=== PATIENT | male | born 1955 | race Caucasian/White ===

== ENCOUNTER 2017-09-21 18:09 | Inpatient (IN) ==
[2017-09-21] MEDS ORDERED: Ondansetron 4 MG/2 ML VIAL IVP ONE (21:21)
[2017-09-21] MEDS ORDERED: *HR* OxyCODONE Immed Rel 5 MG TABLET PO PRN (21:52)
[2017-09-21] MEDS ORDERED: Naloxone 0.4 MG/ML INJ IVP PRN (21:52)
[2017-09-21] MEDS ORDERED: *HR* HYDROcodone/Acet 5/325 mg TABLET PO PRN (21:52)
[2017-09-21] MEDS ORDERED: Acetaminophen 325 MG TABLET PO PRN (21:52)
[2017-09-21 22:20] LABS: Basophils % 0.1 %; Eosinophils % 0.1 %; Hematocrit 32.4 % (37.5-50.1); Hemoglobin 11.4 g/dL (12.9-16.9); Immature Granulocytes % 0.6 % (0-4); Lymphocytes # 1.3 K/mcL (0.6-4.6); Lymphocytes % 9.1 %; Mean Corpuscular HGB Conc 35.2 g/dL (31.6-35.5); Mean Corpuscular Volume 85.3 fL (83.0-100.0); Mean Platelet Volume 10.1 fL (9.4-12.4); Monocytes # 1.2 K/mcL (0.0-1.3); Neutrophils # 11.8 K/mcL (1.6-8.9); Platelet Count 203 K/mcL (140-400); Red Cell Distribution Width 14.2 % (11.5-14.5); Segmented Neutrophils % 82.1 %
[2017-09-21 22:25] LABS: INR 1.2; Prothrombin Time 12.5 Seconds (9.4-12.1)
[2017-09-21 22:39] LABS: Alanine Aminotransferase 15 Units/L (7-52); Albumin 3.2 g/dL (3.5-5.7); Albumin/Globulin Ratio 1.5 (1.1-2.2); Alkaline Phosphatase 83 Units/L (34-104); Aspartate Amino Transferase 25 Units/L (13-39); BUN/Creatinine Ratio 7 (6-26); Bilirubin,Direct 0.2 mg/dL (0.0-0.2); Bilirubin,Indirect 0.2 mg/dL (0.0-1.2); Bilirubin,Total 0.4 mg/dL (0.3-1.0); Blood Urea Nitrogen 8 mg/dL (8-23); Calcium 8.5 mg/dL (8.6-10.3); Carbon Dioxide 20 mEq/L (23-29); Chloride 111 mEq/L (98-107); Globulin 2.1 g/dL (2.4-3.5); Glucose 121 mg/dL (70-105); Magnesium 1.4 mg/dL (1.6-2.6); Osmolality,Calculated 286 (280-300); Phosphorous 1.4 mg/dL (2.7-4.5); Sodium 138 mEq/L (136-145); Total Protein 5.3 g/dL (6.4-8.9); eGFR For African Americans > 60 (> 60); eGFR For Non-African Americans > 60 (> 60)
[2017-09-21] MEDS ORDERED: 0.9 % Sodium Chloride 500 ML IVC ONE (22:40)
--- NOTE | 2017-09-21 23:14 | Internal Med History&Physical ---
Date of Encounter: 09/21/17 Time of Encounter: 22:55 Internal Medicine - H&P: HPI Chief complaint: Altered mental status Admitted From: Hospital to Hospital Transfer Plans for Post Hospital Care: Transfer Alf Facility History of present illness: Mr. Raymundo is a 62 year old male Patient was transferred from the hospital for altered mental status. She is seen and evaluated at the bedside. Patient is currently confused and cannot provide an adequate history. Most of the information is obtained from the paper chart that accompanied the patient from the [place]. Per [facility], history was obtained from the daughter and Patient' s POA. Apparently, patient lives alone and had been having worsening of his diarrehea for the past 7-10 days prior to presentation to [facility] urgent care. They reported associated weakness, patient was found confused and very weak on the floor by daughter, prompting a visit to Urgent care. He was admitted to the [facility] and managed conservatively, however, mental status was said to be worsening , hence patient was transferred here for further management There is concern for inflammatory/infectious process of the neurologic system There was a recent visit to [place] to see a friend prior to the onset of symptoms, it is not clear if there were sick contacts Work up at the [place] revealed leukocytosis with left shift, BROWN, Brain imaging was unremarkable, Chest Xray showed increased marking in the right lung suspicious for PNA. KUB was unremarkable for obstruction, During my evaluation, the patient keeps asking for something to drink and cannot hold a meaningful conversation He is awake and alert, and able to state the location and knows himself, he disoriented to time STAT labs done here shows leukocytosis with left shift, Mild anemia, multiple electrloyte abnormalities including hypokalemia, hypomagnessemia, hypophosphatemia, mild metabolic acidosism Coag panel is WNL, LFT is unremarkable, Brain MRI is pending He is able to move all extremities and power is at least 3/5 against gravity no sensor deficits, no cranial nerve defictis. I did witness what looked like a RUE and RLE tremulousness that lasted for about 5 mins, patient was awake through this process We will admit for encephalopathy, multiple electrolyte abnormalities due to enteritis, r/o c.diff Past Med Surg Social Fam HX - Past Medical History Medical history: hypertension Psychiatric history: PTSD, other - Past Surgical History Surgical History: colectomy - Social History Smoking Status: Current every day smoker Smokeless Tobacco Status: No Alcohol use: none Drug use: none Internal Medicine - H&P: Meds Atorvastatin Calcium [Lipitor] 20 mg PO HS 05/11/16 [History] Cholecalciferol (D-3) [Vitamin D] 2,000 unit PO DAILY 05/11/16 [History] Furosemide [Lasix] 20 mg PO DAILY 05/11/16 [History] Lisinopril [Zestril] 10 mg PO DAILY 05/11/16 [History] Metoclopramide [Reglan] 10 mg PO QIDAC 05/11/16 [History] Mirtazapine [Remeron] 45 mg PO HS 05/11/16 [History] Morphine Immed Rel [Morphine Sulfate] 75 mg PO Q8HR 05/11/16 [History] Pantoprazole Sodium [Protonix] 40 mg PO BID 05/11/16 [History] Sertraline [Zoloft] 200 mg PO DAILY 05/11/16 [History] Spironolactone [Aldactone] 37.5 mg PO DAILY 05/11/16 [History] 3 Allergy/AdvReac Type Severity Reaction Status Date / Time No Known Allergies Allergy Verified 05/11/16 22:48 ROS unobtainable: due to mental status All Systems PM: A 10-system review of systems was performed and is negative for pertinent findings except as documented above in the HPI. - Constitutional Vitals: Temp Pulse Resp BP Pulse Ox 99.0 F 80 16 121/71 92 09/21/17 20:13 09/21/17 20:13 09/21/17 20:13 09/21/17 20:13 09/21/17 20:13 General appearance: Present: cachectic, disheveled, A&O X 2, mild distress - Head Head exam: Present: atraumatic, normocephalic - Eye Eye exam: Present: PERRL, conjuntiva pink, sclera anicteric Pupils: Present: PERRL - Neck Neck exam general surgery: Present: supple, trachea midline. Absent: lymphadenopathy - Respiratory Respiratory exam: Present: CTAB. Absent: accessory muscle use, rales, rhonchi, wheezes - Cardiovascular Cardiovascular exam: Present: RRR, +S1, +S2. Absent: diastolic murmur, gallop, rubs, systolic murmur - GI/Abdominal GI/Abdominal exam: Present: normal bowel sounds, soft, no peritoneal signs. Absent: distended, tenderness Additional comments: scars++, soft, not tender - Extremities Exam Extremities exam: Present: warm, radial pulses palpable and symmetrical. Absent : calf tenderness, cyanotic, pedal edema - Neurological Exam Neurological exam: Present: alert, altered, CN II-XII intact, strengths equal and symetr throughout. Absent: pronater drift, facial droop, speech deficit Additional comments: RUE and RLE tremors - Skin Skin exam: Present: dry, intact Internal Med - H&P Results - Labs CBC & Chem 7: 09/21/17 22:07 09/21/17 22:07 Labs: Short CBC 09/21/17 Range/Units 22:07 WBC 14.4 H (4.3-11.1) K/mcL Hgb 11.4 L (12.9-16.9) g/dL Hct 32.4 L (37.5-50.1) % Plt Count 203 (140-400) K/mcL Neutrophils # 11.8 H (1.6-8.9) K/mcL BMP 09/21/17 22:07 Sodium 138 Potassium 3.0 L Chloride 111 H Carbon Dioxide 20 L BUN 8 Creatinine 1.14 Glucose 121 H Calcium 8.5 L Liver Function 09/21/17 Range/Units 22:07 Total Bilirubin 0.4 (0.3-1.0) mg/dL Direct Bilirubin 0.2 (0.0-0.2) mg/dL AST 25 (13-39) Units/L ALT 15 (7-52) Units/L Alkaline Phosphatase 83 (34-104) Units/L Albumin 3.2 L (3.5-5.7) g/dL - Assessment and plan (1) Encephalopathy Current Visit: Yes Status: Acute Assessment and plan: Possibly multifactorial: *Electrolyte derangements plus dehydration *R/O Intracranial process, obtain Brain MRI *Unlikely meningitis, patient's symptoms date back to 7 days ago, obtain lumbar puncture by IR routinely, no neurolgic findings suggestive of meningitis, however r/o bacterial meningitis,/lyme /viral encephalitis. No rash, but recent travel per paper chart *unlikely Gullian-Mcdermitt syndrome, patient has no motor or sensory weakness / ascending neuropathy of the lower extremities *Consult neurology *aspiration precautions (2) Chronic pain syndrome Current Visit: Yes Status: Chronic Assessment and plan: continue home meds (3) Diarrhea Current Visit: Yes Status: Acute Assessment and plan: Start IV Flagyl Send C.diff Send stool panel Qualifiers: Diarrhea type: presumed infectious Qualified Code(s): R19.7 - Diarrhea, unspecified (4) HTN (hypertension) Current Visit: Yes Status: Chronic Assessment and plan: continue home meds Qualifiers: Hypertension type: essential hypertension Qualified Code(s): I10 - Essential (primary) hypertension (5) Pneumonia Current Visit: Yes Status: Acute Assessment and plan: per CXR from the [place] Start on Levaquin IV Send resp panel Qualifiers: Pneumonia type: due to unspecified organism Laterality: right Lung location: middle lobe of lung Qualified Code(s): J18.1 - Lobar pneumonia, unspecified organism (6) HLD (hyperlipidemia) Current Visit: Yes Status: Chronic Assessment and plan: continue home meds Qualifiers: Hyperlipidemia type: unspecified Qualified Code(s): E78.5 - Hyperlipidemia , unspecified (7) PTSD (post-traumatic stress disorder) Current Visit: Yes Status: Chronic Assessment and plan: continue home meds (8) Hypokalemia Current Visit: Yes Status: Acute Assessment and plan: repalced po, rpt a.m (9) Hypomagnesemia Current Visit: Yes Status: Acute Assessment and plan: replaced IV, rpt a.m (10) Hypophosphatemia Current Visit: Yes Status: Acute Assessment and plan: replaced po, monitor a.m - Time Spent With Patient Total time spent is greater than 50% in coordination of care (as documented) at patient's floor/unit and/or counseling patient:
[2017-09-21] MEDS ORDERED: Levofloxacin 750 MG/150 ML 750 MG/150 ML BAG IVPB SCH (23:45)
[2017-09-21] MEDS: *HR* Heparin 5,000 UNIT/ML VIAL SQ SCH (23:48)
[2017-09-22 01:14] LABS: BUN/Creatinine Ratio 7 (6-26); Blood Urea Nitrogen 8 mg/dL (8-23); Calcium 8.3 mg/dL (8.6-10.3); Carbon Dioxide 18 mEq/L (23-29); Chloride 111 mEq/L (98-107); Glucose 126 mg/dL (70-105); Magnesium 1.3 mg/dL (1.6-2.6); Osmolality,Calculated 286 (280-300); Potassium 3.1 mEq/L (3.5-5.1); Sodium 138 mEq/L (136-145); eGFR For African Americans > 60 (> 60); eGFR For Non-African Americans > 60 (> 60)
[2017-09-22 01:27] LABS: Thyroid Stimulating Hormone 1.431 mcIU/mL (0.340-5.600)
[2017-09-22] MEDS: *HR* Morphine Sulfate SR (12 HR) 15 MG TABLET.ER PO SCH ×3 (02:03→19:02)
[2017-09-22] MEDS: MetroNIDAZOLE 500 MG/100 ML 500 MG/100 ML BAG IVPB SCH ×3 (02:05→16:42)
[2017-09-22] MEDS: *HR* Heparin 5,000 UNIT/ML VIAL SQ SCH ×3 (06:37→22:39)
[2017-09-22] MEDS: Spironolactone 25 MG TABLET PO SCH (09:09)
[2017-09-22] MEDS: Cholecalciferol (D-3) 1,000 UNIT TABLET PO SCH (09:10)
[2017-09-22] MEDS: Furosemide 20 MG TABLET PO SCH (09:10)
[2017-09-22] MEDS ORDERED: Ondansetron 4 MG/2 ML VIAL IVP PRN (12:41)
--- NOTE | 2017-09-22 12:51 | Neurology - Consult Note ---
Date of Encounter: 09/22/17 Time of Encounter: 12:48 Assessment and Plan (1) Altered mental status Current Visit: Yes Status: Acute At this juncture I am not able to identify any specific etiology that might have attributed to his altered mental status from a neurologic perspective. Certainly there is no evidence to support a central nervous system infectious process. It appears as this altered mental status was transient, as currently he is awake and alert and completely lucid. He is not encephalopathic. He has no nuchal signs or headache. Since he is been bedridden with diarrhea for such a long time I will recommend ruling out nutritional factors. He does have a slight bit of weakness of the left upper extremity. I would therefore like to obtain an MRI scan of the brain. However I am not impressed that a lumbar puncture is necessary at this time. I am not convinced that he had seizure episodes. Perhaps medication effect should be considered particularly morphine , Zoloft, and Reglan. I will order a CT scan of the brain and follow-up with him tomorrow. Recommend checking B12 folate and methylmalonic acid levels. We will also recommend thiamine 100 mg IV or IM. Qualifiers: Qualified Code(s): R41.82 - Altered mental status, unspecified History of Present Illness HPI: Mr. Raymundo is a 62 year old male who is being seen for neurologic consultation at the request of the hospitalist secondary to confusion. This gentleman at this time is quite lucid and is able to give a good history of his own medical account. The chart was fully reviewed. He informs me that he is essentially been bedridden for the last 3 weeks. He is been hospitalized at the [facility] in [place] secondary to weakness and worsening diarrhea. Apparently when he was admitted he was confused and very weak. Today when I entered the room he was asleep sitting up in the bed however opened his eyes to voicemail eye contact and was fully engaged. Mentioned previously, he was able to give a lucid account of his own recent medical Hospital history. He denies headache denies neck pain. Denies any new onset numbness tingling or weakness of the face arms or legs. He states he is weak because he is been bedridden for the last several weeks. I did ask about neck pain upper back pain or lower back pain all of which she denies. He denies any bladder or bowel difficulty. Upon admission to [facility] count was elevated at 14.4. I did review his electrolyte panel glucose the rest of his metabolic panel which was relatively unimpressive. Past Med Surg Social Fam HX - Past Medical History Medical history: hypertension Psychiatric history: PTSD, other - Past Surgical History Surgical History: colectomy - Social History Smoking Status: Current every day smoker Smokeless Tobacco Status: No Alcohol use: none Drug use: none Medications and Allergies Atorvastatin Calcium [Lipitor] 20 mg PO HS 05/11/16 [History] Cholecalciferol (D-3) [Vitamin D] 2,000 unit PO DAILY 05/11/16 [History] Furosemide [Lasix] 20 mg PO DAILY 05/11/16 [History] Lisinopril [Zestril] 10 mg PO DAILY 05/11/16 [History] Metoclopramide [Reglan] 10 mg PO QIDAC 05/11/16 [History] Mirtazapine [Remeron] 45 mg PO HS 05/11/16 [History] Pantoprazole Sodium [Protonix] 40 mg PO BID 05/11/16 [History] Sertraline [Zoloft] 200 mg PO DAILY 05/11/16 [History] Spironolactone [Aldactone] 37.5 mg PO DAILY 05/11/16 [History] Morphine Sulfate SR (12 HR) [MS Contin] 75 mg PO Q8HR 09/21/17 [History] 3 Allergy/AdvReac Type Severity Reaction Status Date / Time No Known Allergies Allergy Verified 05/11/16 22:48 All Systems: The remainder of the systems were reviewed and are negative Review of Systems: 10 point review of systems is consistent with the history of present illness and otherwise negative. Physical Examination - Vital Signs Vital Signs: Initial Vital Signs Temp Pulse Resp BP Pulse Ox 99.0 F 80 16 121/71 92 09/21/17 20:13 09/21/17 20:13 09/21/17 20:13 09/21/17 20:13 09/21/17 20:13 - Neurologic Detailed motor examination: other (Patient does have some mild weakness of the left upper extremity in all muscles. I would grade his strength at 4/5. He has 5 over 5 strength of the right upper extremity. And he has -5/5 strength of both lower extremities. No involuntary movements or atrophy are identified.) Detailed sensory examination: intact Reflexes: Biceps: 2+, Triceps: 2+, Brachioradialis: 2+, Patella: 2+, Achilles: 2 + Mental Status Examination: awake, alert, oriented to person, oriented to place, oriented to time, follows commands appropriately, answers questions appropriately, no agnosia, no aphasia, no aproxia Cranial nerve examination: PERRL, EOMI, visual gillespie intact, corneal reflexes brisk symmetrically, sensory to face intact, mastication intact, no facial asymmetry is present, no dysarthria, hearing is intact symmetrically, soft palate elevates bilaterally upon phonation, gag reflex intact, flexes SCM and trapezius muscles symmetrically with full power, tongue protrudes midline, no atrophy or facial fasiculations present Cerebellar examination: no dysmetria, performs finger to nose and heel to alfaro symmetrically without ataxia, no gait ataxia, no truncal ataxia, no difficulty with rapid alternating movements Results - Laboratory Findings CBC and BMP: 09/21/17 22:07 09/22/17 00:40 Abnormal lab findings: Abnormal lab results WBC 14.4 K/mcL (4.3-11.1) H 09/21/17 22:07 RBC 3.80 M/mcL (4.19-5.50) L 09/21/17 22:07 Hgb 11.4 g/dL (12.9-16.9) L 09/21/17 22:07 Hct 32.4 % (37.5-50.1) L 09/21/17 22:07 Neutrophils # 11.8 K/mcL (1.6-8.9) H 09/21/17 22:07 PT 12.5 Seconds (9.4-12.1) H 09/21/17 22:07 Potassium 3.1 mEq/L (3.5-5.1) L 09/22/17 00:40 Chloride 111 mEq/L (98-107) H 09/22/17 00:40 Carbon Dioxide 18 mEq/L (23-29) L 09/22/17 00:40 Glucose 126 mg/dL (70-105) H 09/22/17 00:40 Calcium 8.3 mg/dL (8.6-10.3) L 09/22/17 00:40 Phosphorus 1.4 mg/dL (2.7-4.5) L 09/21/17 22:07 Magnesium 1.3 mg/dL (1.6-2.6) L 09/22/17 00:40 Serum Total Protein 5.3 g/dL (6.4-8.9) L 09/21/17 22:07 Albumin 3.2 g/dL (3.5-5.7) L 09/21/17 22:07 Globulin 2.1 g/dL (2.4-3.5) L 09/21/17 22:07 Consult Discharge Plan - Plan Referrals: Carla Turner, HARRISON [Primary Care Provider] -
[2017-09-22 13:36] LABS: Adenovirus Not Detected (Not Detect); Bordetella Pertussis Not Detected (Not Detect); Chlamydophila pneumoniae Not Detected (Not Detect); Coronavirus 229E Not Detected (Not Detect); Coronavirus HKU1 Not Detected (Not Detect); Coronavirus NL63 Not Detected (Not Detect); Coronavirus OC43 Not Detected (Not Detect); Human Metapneumovirus Not Detected (Not Detect); Human Rhinovirus/Enterovirus Not Detected (Not Detect); Influenza A Subtype 2009 H1 Not Detected (Not Detect); Influenza A Untypeable Not Detected (Not Detect); Influenza B Not Detected (Not Detect); Mycoplasma pneumoniae Not Detected (Not Detect); Parainfluenza Virus 1 Not Detected (Not Detect); Parainfluenza Virus 2 Not Detected (Not Detect); Parainfluenza Virus 3 Not Detected (Not Detect); Parainfluenza Virus 4 Not Detected (Not Detect); Respiratory Syncytial Virus Not Detected (Not Detect)
[2017-09-22] MEDS: Thiamine (B-1) 100 MG in D5% in Water 50 ML IVPB SCH ×2 (16:52→20:23)
--- NOTE | 2017-09-22 17:05 | Internal Med Progress Note ---
Date of Encounter: 09/22/17 Time of Encounter: 17:00 - Assessment and plan (1) Encephalopathy Current Visit: Yes Status: Acute Assessment and plan: Potential etiology includes hypercapnia secondary to narcotics in this patient with COPD, electrolyte disturbances and volume loss from diarrhea, polypharmacy or a neurological event(less likely). #1 unable to obtain a MRI or CT as patient does not want to lay flat. He reports dyspnea on laying flat. #2 Isreal with hydration and correction of electrolytes is mentation is improved, suggestive of diarrhea being the etiology of his encephalopathy #3 hypercapnia from narcotic use cannot be completely ruled out. He was given Narcan at the [place]. Is unclear from notes whether this helped the patient or not (2) Chronic pain syndrome Current Visit: Yes Status: Chronic Assessment and plan: continue home meds (3) Diarrhea Current Visit: Yes Status: Resolved Assessment and plan: Unclear etiology. This could be infectious but has resolved. (4) HTN (hypertension) Current Visit: Yes Status: Chronic Assessment and plan: continue home meds Qualifiers: Hypertension type: essential hypertension Qualified Code(s): I10 - Essential (primary) hypertension (5) Pneumonia Current Visit: Yes Status: Suspected Assessment and plan: There is no evidence of pneumonia. We will get an x-ray. Qualifiers: Pneumonia type: due to unspecified organism Laterality: right Lung location: middle lobe of lung Qualified Code(s): J18.1 - Lobar pneumonia, unspecified organism (6) HLD (hyperlipidemia) Current Visit: Yes Status: Chronic Assessment and plan: continue home meds Qualifiers: Hyperlipidemia type: unspecified Qualified Code(s): E78.5 - Hyperlipidemia , unspecified (7) PTSD (post-traumatic stress disorder) Current Visit: Yes Status: Chronic Assessment and plan: continue home meds (8) Hypokalemia Current Visit: Yes Status: Acute Assessment and plan: Replace potassium and magnesium (9) Hypomagnesemia Current Visit: Yes Status: Acute (10) Hypophosphatemia Current Visit: Yes Status: Acute - Time Spent With Patient Total time spent is greater than 50% in coordination of care (as documented) at patient's floor/unit and/or counseling patient: 25 - 35 minutes - Subjective Interval history: He reports resolution of prior diarrhea. At present, he is alert oriented in time to express some. - Constitutional Vitals: Temp Pulse Resp BP Pulse Ox 98 F 76 16 135/82 93 09/22/17 11:04 09/22/17 11:04 09/22/17 15:35 09/22/17 11:04 09/22/17 15:35 General appearance: Present: cachectic, disheveled, mild distress, A&O X 3 Exam: Physical exam Gen: Comfortable, laying in bed, in no visible distress HEENT: Normocephalic, atraumatic. No conjunctival icterus. Moist oral mucosa. Neck: Supple Lungs: Clear to auscultation, no foreign sounds Heart: Normal S1-S2, no murmurs rubs or gallops Abdomen: Normoactive bowel sounds, no guarding rigidity or tenderness Extremities: No edema clubbing or cyanosis Neuro: Alert oriented 3 Skin: No skin lesions Internal Medicine: Result - Labs CBC & Chem 7: 09/21/17 22:07 09/22/17 00:40 Labs: Short CBC 09/21/17 Range/Units 22:07 WBC 14.4 H (4.3-11.1) K/mcL Hgb 11.4 L (12.9-16.9) g/dL Hct 32.4 L (37.5-50.1) % Plt Count 203 (140-400) K/mcL Neutrophils # 11.8 H (1.6-8.9) K/mcL BMP 09/21/17 09/22/17 22:07 00:40 Sodium 138 138 Potassium 3.0 L 3.1 L Chloride 111 H 111 H Carbon Dioxide 20 L 18 L BUN 8 8 Creatinine 1.14 1.12 Glucose 121 H 126 H Calcium 8.5 L 8.3 L Liver Function 09/21/17 Range/Units 22:07 Total Bilirubin 0.4 (0.3-1.0) mg/dL Direct Bilirubin 0.2 (0.0-0.2) mg/dL AST 25 (13-39) Units/L ALT 15 (7-52) Units/L Alkaline Phosphatase 83 (34-104) Units/L Albumin 3.2 L (3.5-5.7) g/dL - ABG Interpretation ABG results: PT/INR, D-dimer PT 12.5 Seconds (9.4-12.1) H 09/21/17 22:07 Consult Discharge Plan - Plan Referrals: Yue,Carla Felecia, [facility] [Primary Care Provider] -
[2017-09-23] MEDS ORDERED: *HR* Morphine Sulfate SR (12 HR) 15 MG TABLET.ER PO ONE (01:18)
[2017-09-23] MEDS: *HR* Morphine Sulfate SR (12 HR) 15 MG TABLET.ER PO SCH ×3 (01:25→17:54)
[2017-09-23 04:23] LABS: BUN/Creatinine Ratio 9 (6-26); Blood Urea Nitrogen 9 mg/dL (8-23); Carbon Dioxide 20 mEq/L (23-29); Chloride 105 mEq/L (98-107); Glucose 118 mg/dL (70-105); Osmolality,Calculated 276 (280-300); Potassium 3.1 mEq/L (3.5-5.1); Sodium 133 mEq/L (136-145); eGFR For African Americans > 60 (> 60); eGFR For Non-African Americans > 60 (> 60)
[2017-09-23 04:27] LABS: Basophils % 0.1 %; Hematocrit 31.4 % (37.5-50.1); Immature Granulocytes % 0.9 % (0-4); Lymphocytes # 1.3 K/mcL (0.6-4.6); Lymphocytes % 6.1 %; Mean Corpuscular Hemoglobin 29.6 pg (28.0-33.3); Mean Corpuscular Volume 84.4 fL (83.0-100.0); Mean Platelet Volume 10.1 fL (9.4-12.4); Monocytes # 1.1 K/mcL (0.0-1.3); Monocytes % 5.5 %; Neutrophils # 17.8 K/mcL (1.6-8.9); Platelet Count 185 K/mcL (140-400); Red Blood Count 3.72 M/mcL (4.19-5.50); Red Cell Distribution Width 14.2 % (11.5-14.5); Segmented Neutrophils % 87.4 %
[2017-09-23 04:49] LABS: Folate 15.9 ng/mL (3.0-16.0)
[2017-09-23] MEDS: *HR* Heparin 5,000 UNIT/ML VIAL SQ SCH ×3 (06:24→20:59)
[2017-09-23] MEDS: Spironolactone 25 MG TABLET PO SCH (09:56)
[2017-09-23] MEDS: Furosemide 20 MG TABLET PO SCH (09:57)
[2017-09-23] MEDS: Cholecalciferol (D-3) 1,000 UNIT TABLET PO SCH (10:00)
[2017-09-23] MEDS: Thiamine (B-1) 100 MG in D5% in Water 50 ML IVPB SCH (11:53)
--- NOTE | 2017-09-23 12:20 | Internal Med Progress Note ---
Date of Encounter: 09/23/17 Time of Encounter: 12:20 - Assessment and plan (1) Pneumonia Current Visit: Yes Status: Acute Assessment and plan: Chest x-ray from yesterday showed multilobar left upper and lower lobe pneumonia with infiltrates in the right upper lobe as well. This is suggestive of Community-acquired pneumonia especially with a white count. My concern is Legionella because of ongoing diarrhea. Plan #1 start Rocephin and azithromycin #2 Respiratory Cultures and Urine Antigens for Legionella and Pneumococcus #[address] Chest Based on This Data Note: Chest X-[facility] from the [facility] Was Read As a Right-Sided Opacities Not Left-Sided (2) Encephalopathy Current Visit: Yes Status: Acute Assessment and plan: Potential etiology includes hypercapnia secondary to narcotics in this patient with COPD and community-acquired pneumonia, electrolyte disturbances and volume loss from diarrhea, polypharmacy or a neurological event(less likely). He is better now and back to baseline. (3) Chronic pain syndrome Current Visit: Yes Status: Chronic Assessment and plan: continue home meds at reduced doses (4) Diarrhea Current Visit: Yes Status: Resolved Assessment and plan: Send C. difficile if persistent diarrhea Qualifiers: Diarrhea type: presumed infectious Qualified Code(s): R19.7 - Diarrhea, unspecified (5) HTN (hypertension) Current Visit: Yes Status: Chronic Assessment and plan: continue home meds Qualifiers: Hypertension type: essential hypertension Qualified Code(s): I10 - Essential (primary) hypertension (6) HLD (hyperlipidemia) Current Visit: Yes Status: Chronic Assessment and plan: continue home meds Qualifiers: Hyperlipidemia type: unspecified Qualified Code(s): E78.5 - Hyperlipidemia , unspecified (7) PTSD (post-traumatic stress disorder) Current Visit: Yes Status: Chronic Assessment and plan: continue home meds (8) Hypokalemia Current Visit: Yes Status: Acute Assessment and plan: Replace potassium and magnesium (9) Hypomagnesemia Current Visit: Yes Status: Acute (10) Hypophosphatemia Current Visit: Yes Status: Acute - Time Spent With Patient Total time spent is greater than 50% in coordination of care (as documented) at patient's floor/unit and/or counseling patient: 25 - 35 minutes - Subjective Interval history: He reports to bouts of diarrhea this morning. As you use the bathroom, he was significantly short of breath. No cough. - Constitutional Vitals: Temp Pulse Resp BP Pulse Ox 97.7 F 98 17 127/84 93 09/23/17 11:33 09/23/17 11:33 09/23/17 11:33 09/23/17 11:33 09/23/17 11:33 General appearance: Present: cachectic, disheveled, mild distress, A&O X 3 Exam: Physical exam Gen: Comfortable, laying in bed, in no visible distress HEENT: Normocephalic, atraumatic. No conjunctival icterus. Moist oral mucosa. Neck: Supple Lungs: Clear to auscultation, left-sided crackles Heart: Normal S1-S2, no murmurs rubs or gallops Abdomen: Normoactive bowel sounds, no guarding rigidity or tenderness Extremities: No edema clubbing or cyanosis Neuro: Alert oriented 3, no focal deficits Skin: No skin lesions Internal Medicine: Result - Labs CBC & Chem 7: 09/23/17 03:53 09/23/17 03:53 Labs: Short CBC 09/23/17 Range/Units 03:53 WBC 20.4 H (4.3-11.1) K/mcL Hgb 11.0 L (12.9-16.9) g/dL Hct 31.4 L (37.5-50.1) % Plt Count 185 (140-400) K/mcL Neutrophils # 17.8 H (1.6-8.9) K/mcL BMP 09/23/17 03:53 Sodium 133 L Potassium 3.1 L Chloride 105 Carbon Dioxide 20 L BUN 9 Creatinine 0.99 Glucose 118 H Calcium 8.0 L - ABG Interpretation ABG results: PT/INR, D-dimer PT 12.5 Seconds (9.4-12.1) H 09/21/17 22:07 - Impressions Impressions Chest X-Ray 09/22/17 17:08 IMPRESSION: Extensive interstitial pulmonary opacities, left greater than right. Findings may represent pneumonia. This is new since 01/23/2014. Recommend radiographic follow-up to complete resolution. D/ / Ajay Bazan MD / Ajay Bazan MD Interpreting Provider: Ajay Bazan MD Consult Discharge Plan - Plan Referrals: Carla Turner CNP [Primary Care Provider] -
[2017-09-23] MEDS ORDERED: Potassium Chloride 40 MEQ, Lidocaine 1% 2 ML in D5% in Water 500 ML IVPB ONE (12:45)
[2017-09-23] MEDS: cefTRIAXone 1,000 MG in 0.9 % Sodium Chloride Mini Bag 100 ML IVPB SCH (15:01)
[2017-09-23] MEDS: Azithromycin 500 MG in D5% in Water 250 ML IVPB SCH (15:02)
[2017-09-24] MEDS: *HR* Morphine Sulfate SR (12 HR) 15 MG TABLET.ER PO SCH ×3 (00:51→15:57)
[2017-09-24] MEDS: *HR* Heparin 5,000 UNIT/ML VIAL SQ SCH ×3 (05:59→21:43)
[2017-09-24] MEDS: Spironolactone 25 MG TABLET PO SCH (07:43)
[2017-09-24] MEDS: Cholecalciferol (D-3) 1,000 UNIT TABLET PO SCH (07:44)
[2017-09-24] MEDS: Furosemide 20 MG TABLET PO SCH (07:44)
[2017-09-24] MEDS: Thiamine (B-1) 100 MG in D5% in Water 50 ML IVPB SCH (09:26)
[2017-09-24] MEDS: cefTRIAXone 1,000 MG in 0.9 % Sodium Chloride Mini Bag 100 ML IVPB SCH (11:02)
[2017-09-24] MEDS: Azithromycin 500 MG in D5% in Water 250 ML IVPB SCH (11:08)
[2017-09-24] MEDS: Ipratropium/Albuterol Neb 3 ML IH SCH ×2 (15:38→21:05)
[2017-09-24] MEDS ORDERED: Potassium Chloride 20 MEQ, Lidocaine 1% 2 ML in D5% in Water 250 ML IVPB ONE (15:46)
--- NOTE | 2017-09-24 21:34 | Internal Med Progress Note ---
Date of Encounter: 09/24/17 Time of Encounter: 09:37 - Assessment and plan (1) Pneumonia Current Visit: Yes Status: Acute Assessment and plan: Improving. CXR with multilobar left upper and lower lobe pneumonia with infiltrates in the right upper lobe as well. This is suggestive of community- acquired pneumonia especially with a white count. Continue IV Rocephin and azithromycin. Still with O2 requirement; will qualify for home supplemental O2. (2) Encephalopathy Current Visit: Yes Status: Acute Assessment and plan: Likely combination of metabolic encephalopathy and drug effect (opioids). Potential etiology includes hypercapnia secondary to narcotics in this patient with COPD and community-acquired pneumonia, electrolyte disturbances and volume loss from diarrhea, polypharmacy or a neurological event(less likely). Continues to improve. Sales Office Manager in room today, and she states that he has improved greatly but still with some difficulty with recall. I will suspect this will continue to improve with resolution of acute illness and metabolic derangements. Drug effects likely resolved now with reduction in opioid dosage. Will consult industrial health and safety professor to rule out nutritional deficiencies as a cause. (3) Chronic pain syndrome Current Visit: Yes Status: Chronic Assessment and plan: Continue home medications at reduced dosage. (4) Diarrhea Current Visit: Yes Status: Resolved Assessment and plan: Resolved. (5) HTN (hypertension) Current Visit: Yes Status: Chronic Assessment and plan: Continue home medications. Qualifiers: Hypertension type: essential hypertension Qualified Code(s): I10 - Essential (primary) hypertension (6) HLD (hyperlipidemia) Current Visit: Yes Status: Chronic Assessment and plan: Continue home medications. Qualifiers: Hyperlipidemia type: unspecified Qualified Code(s): E78.5 - Hyperlipidemia , unspecified (7) PTSD (post-traumatic stress disorder) Current Visit: Yes Status: Chronic Assessment and plan: Continue home medications. (8) Hypokalemia Current Visit: Yes Status: Acute Assessment and plan: Continue potassium repletion. Recheck BMP in AM. (9) Hypomagnesemia Current Visit: Yes Status: Resolved Assessment and plan: Resolved. - Time Spent With Patient Total time spent is greater than 50% in coordination of care (as documented) at patient's floor/unit and/or counseling patient: - Subjective Interval history: Patient had no acute events overnight. He thinks that he is back to his baseline. He is requiring supplemental O2 (previously no requirement at home), but denies chest pain or SOB. He has no new complaints. - Constitutional Vitals: Temp Pulse Resp BP Pulse Ox 98.5 F 90 18 106/70 90 09/24/17 20:58 09/24/17 20:58 09/24/17 20:58 09/24/17 20:58 09/24/17 20:58 General appearance: Present: cooperative, A&O X 3, pleasant, no acute distress, loss of weight, answers questions appropriately - Respiratory Respiratory exam: Present: CTAB. Absent: accessory muscle use, rales, rhonchi, wheezes Additional comments: Mildly labored WOB - Cardiovascular Cardiovascular exam: Present: RRR, +S1, +S2. Absent: diastolic murmur, gallop, rubs, systolic murmur Additional comments: No BLE edema - GI/Abdominal GI/Abdominal exam: Present: normal bowel sounds, soft. Absent: distended, hepatomegaly, mass, splenomegaly, tenderness - Psychiatric Psychiatric exam: Present: normal affect, normal mood. Absent: agitated, anxious, depressed - Skin Skin exam: Present: dry, intact, warm. Absent: cyanosis, rash Internal Medicine: Result - Labs CBC & Chem 7: 09/23/17 03:53 09/23/17 03:53 - ABG Interpretation ABG results: PT/INR, D-dimer PT 12.5 Seconds (9.4-12.1) H 09/21/17 22:07 Consult Discharge Plan - Plan Referrals: Carla Turner, [facility] [Primary Care Provider] -
[2017-09-25] MEDS: *HR* Morphine Sulfate SR (12 HR) 15 MG TABLET.ER PO SCH ×4 (01:04→23:53)
[2017-09-25] MEDS: Ipratropium/Albuterol Neb 3 ML IH SCH ×4 (03:48→21:56)
[2017-09-25 04:59] LABS: Basophils % 0.1 %; Eosinophils # 0.1 K/mcL (0.0-0.6); Eosinophils % 0.4 %; Hematocrit 30.9 % (37.5-50.1); Hemoglobin 10.9 g/dL (12.9-16.9); Immature Granulocytes % 0.7 % (0-4); Immature Platelets 2.9 % (1.1-6.1); Lymphocytes # 1.1 K/mcL (0.6-4.6); Lymphocytes % 7.3 %; Mean Corpuscular HGB Conc 35.3 g/dL (31.6-35.5); Mean Corpuscular Hemoglobin 29.9 pg (28.0-33.3); Mean Corpuscular Volume 84.9 fL (83.0-100.0); Mean Platelet Volume 9.7 fL (9.4-12.4); Monocytes # 0.8 K/mcL (0.0-1.3); Monocytes % 5.2 %; Neutrophils # 12.7 K/mcL (1.6-8.9); Platelet Count 192 K/mcL (140-400); Red Blood Count 3.64 M/mcL (4.19-5.50); Segmented Neutrophils % 86.3 %
[2017-09-25 05:28] LABS: BUN/Creatinine Ratio 9 (6-26); Blood Urea Nitrogen 8 mg/dL (8-23); Calcium 7.8 mg/dL (8.6-10.3); Carbon Dioxide 22 mEq/L (23-29); Chloride 99 mEq/L (98-107); Glucose 112 mg/dL (70-105); Osmolality,Calculated 267 (280-300); Potassium 3.4 mEq/L (3.5-5.1); Sodium 129 mEq/L (136-145); eGFR For African Americans > 60 (> 60); eGFR For Non-African Americans > 60 (> 60)
[2017-09-25] MEDS: *HR* Heparin 5,000 UNIT/ML VIAL SQ SCH ×3 (05:39→20:18)
[2017-09-25] MEDS: Furosemide 20 MG TABLET PO SCH (08:22)
[2017-09-25] MEDS: Thiamine (B-1) 100 MG TABLET PO SCH (08:22)
[2017-09-25] MEDS: Cholecalciferol (D-3) 1,000 UNIT TABLET PO SCH (08:22)
[2017-09-25] MEDS: Spironolactone 25 MG TABLET PO SCH (08:22)
[2017-09-25 08:54] LABS: Magnesium 1.5 mg/dL (1.6-2.6); Phosphorous 1.8 mg/dL (2.7-4.5)
[2017-09-25] MEDS ORDERED: *HR* Magnesium Sulfate 1 GM/2 ML VIAL IM STA (09:32)
[2017-09-25] MEDS: Azithromycin 500 MG in D5% in Water 250 ML IVPB SCH (12:53)
[2017-09-25] MEDS: cefTRIAXone 1,000 MG in 0.9 % Sodium Chloride Mini Bag 100 ML IVPB SCH (12:54)
[2017-09-25] MEDS: MetroNIDAZOLE 500 MG/100 ML 500 MG/100 ML BAG IVPB SCH ×2 (16:06→23:53)
[2017-09-25] MEDS: Nicotine 21 MG PATCH.TD24 TD SCH (17:34)
--- NOTE | 2017-09-25 21:31 | Internal Med Progress Note ---
Date of Encounter: 09/25/17 Time of Encounter: 15:47 - Assessment and plan (1) Pneumonia Current Visit: Yes Status: Acute Assessment and plan: Improving, but still with significant supplemental O2 requirement. CXR with multilobar left upper and lower lobe pneumonia with infiltrates in the right upper lobe as well. This is suggestive of community-acquired pneumonia especially with a white count. Continue IV Rocephin and azithromycin. Will qualify for home supplemental O2. Per PT/OT recommendations, plan for discharge to SNF when medically stable. (2) Encephalopathy Current Visit: Yes Status: Resolved Assessment and plan: Likely combination of metabolic encephalopathy and drug effect (opioids). Potential etiology includes hypercapnia secondary to narcotics in this patient with COPD and community-acquired pneumonia, electrolyte disturbances and volume loss from diarrhea, polypharmacy or a neurological event(less likely). Looks to be resolved and now back to baseline. Will continue to taper opioids to lowest effective dose. Nutrition consulted; appreciate input. (3) Chronic pain syndrome Current Visit: Yes Status: Chronic Assessment and plan: Continue home medications at reduced dosage. Continue to wean opioids to lowest effective dose. (4) Diarrhea Current Visit: Yes Status: Acute Assessment and plan: Resolved, but restarted again today. C. diff negative. Obtained CT abdomen/ pelvis, which showed enteritis. Will add flagyl to antibiotic regimen. Start imodium PRN for diarrhea. CT abdomen/pelvis also showed 2.8 cm right common iliac artery aneurysm. Will recommended yearly follow up with B mode ultrasound scanning. (5) HTN (hypertension) Current Visit: Yes Status: Chronic Assessment and plan: Continue home medications. Qualifiers: Hypertension type: essential hypertension Qualified Code(s): I10 - Essential (primary) hypertension (6) HLD (hyperlipidemia) Current Visit: Yes Status: Chronic Assessment and plan: Continue home medications. Qualifiers: Hyperlipidemia type: unspecified Qualified Code(s): E78.5 - Hyperlipidemia , unspecified (7) PTSD (post-traumatic stress disorder) Current Visit: Yes Status: Chronic Assessment and plan: Continue home medications. (8) Hypokalemia Current Visit: Yes Status: Acute Assessment and plan: Continue potassium repletion. Recheck BMP in AM. (9) Hypomagnesemia Current Visit: Yes Status: Acute Assessment and plan: Replete magnesium. Recheck BMP in AM. (10) Nicotine dependence Current Visit: Yes Status: Acute Assessment and plan: Smokes 3 PPD. Counselled on smoking cessation. Start nicotine transdermal 21 mg QD. Qualifiers: Nicotine product type: cigarettes Substance use status: in withdrawal Qualified Code(s): F17.213 - Nicotine dependence, cigarettes, with withdrawal (11) DVT prophylaxis Current Visit: Yes Status: Acute Assessment and plan: Continue heparin SQ. - Time Spent With Patient Total time spent is greater than 50% in coordination of care (as documented) at patient's floor/unit and/or counseling patient: less than 15 minutes - Subjective Interval history: Patient had no acute events overnight. He states that he is "ready to go home. " Nursing staff reports increased diarrhea this AM. C. diff is negative. He denies abdominal pain, nausea, or vomiting. He is still requiring supplemental O2, and more so during exertion and therapy. He denies chest pain or SOB. He has no new complaints. - Constitutional Vitals: Temp Pulse Resp BP Pulse Ox 98.0 F 80 18 119/75 93 09/25/17 20:10 09/25/17 20:10 09/25/17 20:10 09/25/17 20:10 09/25/17 20:10 General appearance: Present: cooperative, A&O X 3, pleasant, no acute distress, loss of weight, answers questions appropriately - Respiratory Respiratory exam: Present: CTAB. Absent: accessory muscle use, rales, rhonchi, wheezes Additional comments: Mildly labored WOB - Cardiovascular Cardiovascular exam: Present: RRR, +S1, +S2. Absent: diastolic murmur, gallop, rubs, systolic murmur Additional comments: No BLE edema - GI/Abdominal GI/Abdominal exam: Present: normal bowel sounds, soft. Absent: distended, hepatomegaly, mass, splenomegaly, tenderness - Psychiatric Psychiatric exam: Present: normal affect, normal mood. Absent: agitated, anxious, depressed - Skin Skin exam: Present: dry, intact, warm. Absent: cyanosis, rash Internal Medicine: Result - Labs CBC & Chem 7: 09/25/17 04:37 09/25/17 04:37 Labs: Short CBC 09/25/17 Range/Units 04:37 WBC 14.7 H (4.3-11.1) K/mcL Hgb 10.9 L (12.9-16.9) g/dL Hct 30.9 L (37.5-50.1) % Plt Count 192 (140-400) K/mcL Neutrophils # 12.7 H (1.6-8.9) K/mcL BMP 09/25/17 04:37 Sodium 129 L Potassium 3.4 L Chloride 99 Carbon Dioxide 22 L BUN 8 Creatinine 0.87 Glucose 112 H Calcium 7.8 L - ABG Interpretation ABG results: PT/INR, D-dimer PT 12.5 Seconds (9.4-12.1) H 09/21/17 22:07 - Impressions Impressions Abdomen/Pelvis CT 09/25/17 12:30 IMPRESSION: 1. Bilateral small pleural effusions. Ground-glass infiltrates at the lung bases may reflect pneumonia. Please correlate clinically. 2. Bilateral nonobstructing renal calculi. 3. 2.8 cm right common iliac artery aneurysm. 4. Fluid-filled mildly dilated multiple small bowel loops suggestive of enteritis. No clear evidence for bowel obstruction. Small amount of free fluid in the pelvis likely reactive to the enteritis. D/ / Shon Patel MD / Shon Patel MD Interpreting Provider: Shon Patel MD Consult Discharge Plan - Plan Referrals: Carla Turner CNP [Primary Care Provider] -
[2017-09-26] MEDS: Ipratropium/Albuterol Neb 3 ML IH SCH ×2 (04:39→11:22)
[2017-09-26] MEDS: *HR* Heparin 5,000 UNIT/ML VIAL SQ SCH ×2 (05:59→14:19)
[2017-09-26 06:32] LABS: Basophils % 0.1 %; Eosinophils # 0.2 K/mcL (0.0-0.6); Hematocrit 29.4 % (37.5-50.1); Hemoglobin 10.3 g/dL (12.9-16.9); Immature Granulocytes % 0.4 % (0-4); Lymphocytes # 0.9 K/mcL (0.6-4.6); Lymphocytes % 8.1 %; Mean Corpuscular Hemoglobin 29.7 pg (28.0-33.3); Mean Corpuscular Volume 84.7 fL (83.0-100.0); Mean Platelet Volume 9.5 fL (9.4-12.4); Monocytes # 0.6 K/mcL (0.0-1.3); Monocytes % 5.5 %; Platelet Count 179 K/mcL (140-400); Red Blood Count 3.47 M/mcL (4.19-5.50); Red Cell Distribution Width 14.3 % (11.5-14.5); Segmented Neutrophils % 83.9 %
[2017-09-26 06:42] LABS: Magnesium 1.7 mg/dL (1.6-2.6); Phosphorous 2.3 mg/dL (2.7-4.5)
[2017-09-26 06:45] LABS: BUN/Creatinine Ratio 11 (6-26); Blood Urea Nitrogen 8 mg/dL (8-23); Calcium 7.9 mg/dL (8.6-10.3); Carbon Dioxide 25 mEq/L (23-29); Chloride 99 mEq/L (98-107); Glucose 113 mg/dL (70-105); Osmolality,Calculated 269 (280-300); Potassium 3.7 mEq/L (3.5-5.1); Sodium 130 mEq/L (136-145); eGFR For African Americans > 60 (> 60); eGFR For Non-African Americans > 60 (> 60)
[2017-09-26] MEDS: *HR* Morphine Sulfate SR (12 HR) 15 MG TABLET.ER PO SCH (07:26)
[2017-09-26] MEDS: MetroNIDAZOLE 500 MG/100 ML 500 MG/100 ML BAG IVPB SCH (07:26)
[2017-09-26] MEDS ORDERED: Azithromycin 250 MG TABLET PO SCH (09:00)
[2017-09-26] MEDS: Furosemide 20 MG TABLET PO SCH (09:29)
[2017-09-26] MEDS: Spironolactone 25 MG TABLET PO SCH (09:29)
[2017-09-26] MEDS: Nicotine 21 MG PATCH.TD24 TD SCH (09:30)
[2017-09-26] MEDS: Thiamine (B-1) 100 MG TABLET PO SCH (09:30)
[2017-09-26] MEDS: Cholecalciferol (D-3) 1,000 UNIT TABLET PO SCH (09:30)
[2017-09-26] MEDS ORDERED: Acetylcysteine 10% 2 ML INHSOL IH SCH (11:00)
[2017-09-26 11:05] VITALS: BP 122/79
[2017-09-26] MEDS: cefTRIAXone 1,000 MG in 0.9 % Sodium Chloride Mini Bag 100 ML IVPB SCH (11:29)
--- NOTE | 2017-09-26 14:00 | Discharge Summary ---
- NOTES TO OUTPATIENT PROVIDER Notes to Outpatient Provider: Disposition with outpatient provider at the time of [facility] discharge. Orders not resulted at time of discharge: Pending orders 09/21/17 23:19 Culture,Blood [BC] Stat 09/23/17 13:00 Culture,Respiratory [RM] Stat 09/29/17 04:00 Phosphorous AM 0400 Date of Encounter: 09/26/17 Time of Encounter: 13:57 - Discharge Diagnosis (1) Pneumonia Priority: Primary Status: Acute (2) Encephalopathy Priority: Secondary Status: Resolved (3) Chronic pain syndrome Priority: Secondary Status: Chronic (4) Diarrhea Priority: Secondary Status: Acute (5) HTN (hypertension) Priority: Secondary Status: Chronic Qualifiers: Hypertension type: essential hypertension Qualified Code(s): I10 - Essential (primary) hypertension (6) HLD (hyperlipidemia) Priority: Secondary Status: Chronic Qualifiers: Hyperlipidemia type: unspecified Qualified Code(s): E78.5 - Hyperlipidemia , unspecified (7) PTSD (post-traumatic stress disorder) Priority: Secondary Status: Chronic (8) Hypokalemia Priority: Secondary Status: Resolved (9) Hypomagnesemia Priority: Secondary Status: Resolved (10) Nicotine dependence Priority: Secondary Status: Chronic Qualifiers: Nicotine product type: cigarettes Substance use status: in withdrawal Qualified Code(s): F17.213 - Nicotine dependence, cigarettes, with withdrawal (11) DVT prophylaxis Priority: Secondary Status: Acute Hospital course: Mr. Raymundo is a 62 year old white male admitted for acute encephalopathy and pneumonia. Patient was admitted to general medical floor with telemetry. He received dose of IV levaquin at OSH. He was transitioned to IV rocephin and azithromycin for CAP. He was started on supplemental O2 and nebulizer treatments for acute respiratory failure. He has required 4-6 L NC during this admission, more with exertion and therapy. His encephalopathy was thought to likely be a combination of metabolic encephalopathy and drug effect (opioids). Potential etiology included hypercapnia secondary to narcotics in this patient with COPD and community-acquired pneumonia, electrolyte disturbances and volume loss from diarrhea, and/or polypharmacy. Home long-acting morphine dose was halved and home oxycodone discontinued, and his mental status improved. Mental status continued to improve throughout hospitalization, and lye machine operator states that he is now back to baseline mental status. Hearing Screen Coordinator was consulted, and clear liquid diet was recommended as patient did not have dentures. Nutritional supplements were started. He had some hyponatremia which has started to improve with fluid restriction to 2L QD. He had some acute on subacute diarrhea, without abdominal pain, nausea, or vomiting. CT abdomen showed enteritis. IV flagyl was added to his antibiotic regimen. Diarrhea improved the next day with imodium. CT abdomen also showed an iliac aneurysm that will need to be followed up in 1 year based on size. Patient has met maximum benefit of this hospitalization and will be discharged to [facility] for acute rehabilitation. Discharge discussed with: patient, family, nurse, social work, case management, other (Pharmacist) - Time Spent with Patient Total time spent providing and/or coordinating discharge services: Greater than 30 minutes - Discharge Medications Prescriptions: RX: Azithromycin [Zithromax Tri-Reece] 500 mg PO DAILY 1 Days #1 tablet Cefdinir [Omnicef] 300 mg PO BID 4 Days #7 capsule metroNIDAZOLE [Flagyl] 500 mg PO TID 6 Days #17 tablet Home Medications: RX: Atorvastatin Calcium [Lipitor] 20 mg PO HS 05/11/16 [History] RX: Furosemide [Lasix] 20 mg PO DAILY 05/11/16 [History] RX: Lisinopril [Zestril] 10 mg PO DAILY 05/11/16 [History] RX: Metoclopramide [Reglan] 10 mg PO QID PRN 05/11/16 [History] RX: Mirtazapine [Remeron] 45 mg PO HS 05/11/16 [History] RX: Pantoprazole Sodium [Protonix] 40 mg PO BID 05/11/16 [History] RX: Sertraline [Zoloft] 200 mg PO DAILY 05/11/16 [History] RX: Spironolactone [Aldactone] 37.5 mg PO DAILY 05/11/16 [History] RX: Albuterol Sulfate [Proair Hfa] 2 puff IH Q6H PRN 09/23/17 [History] RX: Aripiprazole [Abilify] 7.5 mg PO DAILY 09/23/17 [History] RX: Budesonide/Formoterol 160/4.5 [Symbicort 160/4.5] 2 puff IH BID 09/23/17 [ History] RX: Melatonin/Pyridoxine HCl (B6) [Melatonin 3 mg Tablet] 9 mg PO HS PRN [History] RX: Multivitamin [Flintstones] 1 tab PO DAILY 09/23/17 [History] RX: Pregabalin [Lyrica] 150 mg PO BID 09/23/17 [History] RX: SUMAtriptan Succinate [Imitrex] 100 mg PO DAILY PRN 09/23/17 [History] RX: Tamsulosin [Flomax] 0.8 mg PO DAILY 09/23/17 [History] Cefdinir [Omnicef] 300 mg PO BID 4 Days #7 capsule 09/26/17 [Rx] RX: Azithromycin [Zithromax Tri-Reece] 500 mg PO DAILY 1 Days #1 tablet 09/26/17 [ Rx] RX: Cholecalciferol (D-3) [Vitamin D] 1,000 unit PO DAILY tablet 09/26/17 [Rx] RX: HYDROcodone/Acet 5/325 mg [[place] 5-325 mg] 1 tab PO Q6HR PRN 5 Days #20 tablet 09/26/17 [Rx] RX: Loperamide [Imodium] 2 mg PO Q4HR PRN capsule 09/26/17 [Rx] RX: Morphine Sulfate SR (12 HR) [MS Contin] 30 mg PO Q8HR 5 Days #30 09/26/17 [ Rx] RX: Nicotine Patch [Nicoderm] 21 mg TD DAILY patch.td24 09/26/17 [Rx] metroNIDAZOLE [Flagyl] 500 mg PO TID 6 Days #17 tablet 09/26/17 [Rx] Allergies/Adverse Reactions: 3 Allergy/AdvReac Type Severity Reaction Status Date / Time No Known Allergies Allergy Verified 05/11/16 22:48 Date of admission: 09/21/17 21:52 Primary care physician: Carla Grove Consults: 09/21/17 22:51 Consult to Neurology [CONS] Routine Consulting Provider: Neu[facility] Reason for Consult: Encephalopathy, Tremos, Weakness Call Completed: No 09/24/17 08:18 consult to filter tender [Consult to Nutrition] [CONS] Routine Comment: Please identify nutritional deficiencies and treat Consulting Provider: NUTRITION Reason for Dietary Consult: Diet Education Other:: Please identify nutritional deficiencies and treat. Thanks. 09/24/17 16:32 Consult to Occupational Therapy [CONS] Routine Comment: Evaluate, develop and implement POC Reason for Consult: Generalized weakness/debility secondary to acute/subacute encephalopathy (likely secondary to overuse of opioids , now tapered down and with normal mentation), poor nutrition (filter tender following), and acute infection ( pneumonia, now improving). Please evaluate, treat, and make recommendations. Please try to see him first thing tomorrow as he will be discharged home tomorrow. Thanks! Does patient have active BEDREST order?: No Is patient medically & hemodynamically stable?: Yes Patient assessed for mobility or mobilized this visit?: No Consult to Physical Therapy [CONS] Routine Comment: Evaluate, develop and implement POC Reason for Consult: Generalized weakness/debility secondary to acute/subacute encephalopathy (likely secondary to overuse of opioids , now tapered down and with normal mentation), poor nutrition (filter tender following), and acute infection ( pneumonia, now improving). Please evaluate, treat, and make recommendations. Please try to see him first thing tomorrow as he will be discharged home tomorrow. Thanks! Does patient have active BEDREST order?: No Is patient medically & hemodynamically stable?: Yes Patient assessed for mobility or mobilized this visit?: No 09/25/17 11:31 Consult to Filter Tank Tender Helper [CONS] Stat Reason for SW Consult: SNF Placement today. Medically clear for discharge today. 09/25/17 11:32 Consult to Case Management [CONS] Stat Comment: SNF Placement today. Medically clear for discharg Discharging clinician: Jt Cerrato Anticipated date of discharge: 09/26/17 - Constitutional Vitals: Temp Pulse Resp BP Pulse Ox 98 F 73 16 122/79 93 09/26/17 11:04 09/26/17 11:04 09/26/17 11:04 09/26/17 11:04 09/26/17 11:04 General appearance: Present: cooperative, A&O X 3, pleasant, no acute distress, loss of weight, answers questions appropriately - Respiratory Respiratory exam: Present: CTAB. Absent: accessory muscle use, rales, rhonchi, wheezes Additional comments: Normal WOB - Cardiovascular Cardiovascular exam: Present: RRR, +S1, +S2. Absent: diastolic murmur, gallop, rubs, systolic murmur Additional comments: No BLE edema - GI/Abdominal GI/Abdominal exam: Present: normal bowel sounds, soft. Absent: distended, hepatomegaly, mass, splenomegaly, tenderness - Psychiatric Psychiatric exam: Present: normal affect, normal mood. Absent: agitated, anxious, depressed - Skin Skin exam: Present: dry, intact, warm. Absent: cyanosis, rash - Patient Status Disposition: Transfer [facility] Condition: Good Overall status at discharge: patient is progressing back to baseline - Discharge Instructions Follow Up With: Carla Turner CNP [Primary Care Provider] - - Diet and Activity Activity: as per physical therapy Diet: other (Clear Liquid Diet, Fluid Restriction 2L QD) - VTE Documentation of Mechanical Device: Intermittent pneumatic compression device
--- NOTE | 2017-09-26 14:45 | Physician Discharge Referral ---
ExtendedCare Referral Info Transfer To: [facility] Inpatient Provider in Charge after Transfer: Other Institutional Level of Care: Skilled - Diagnosis (1) Pneumonia Priority: Primary Status: Acute (2) Encephalopathy Priority: Secondary Status: Resolved (3) Chronic pain syndrome Priority: Secondary Status: Chronic (4) Diarrhea Priority: Secondary Status: Acute (5) HTN (hypertension) Priority: Secondary Status: Chronic (6) HLD (hyperlipidemia) Priority: Secondary Status: Chronic (7) PTSD (post-traumatic stress disorder) Priority: Secondary Status: Chronic (8) Hypokalemia Priority: Secondary Status: Resolved (9) Hypomagnesemia Priority: Secondary Status: Resolved (10) Nicotine dependence Priority: Secondary Status: Chronic (11) DVT prophylaxis Priority: Secondary Status: Acute Prognosis: Fair Aware of Diagnosis: Patient, Family Aware of Prognosis: Patient, Family - Transfer Medications Prescriptions: Azithromycin [Zithromax Tri-Reece] 500 mg PO DAILY 1 Days #1 tablet Cefdinir [Omnicef] 300 mg PO BID 4 Days #7 capsule metroNIDAZOLE [Flagyl] 500 mg PO TID 6 Days #17 tablet Home Medications: Atorvastatin Calcium [Lipitor] 20 mg PO HS 05/11/16 [History] Furosemide [Lasix] 20 mg PO DAILY 05/11/16 [History] Lisinopril [Zestril] 10 mg PO DAILY 05/11/16 [History] Metoclopramide [Reglan] 10 mg PO QID PRN 05/11/16 [History] Mirtazapine [Remeron] 45 mg PO HS 05/11/16 [History] Pantoprazole Sodium [Protonix] 40 mg PO BID 05/11/16 [History] Sertraline [Zoloft] 200 mg PO DAILY 05/11/16 [History] Spironolactone [Aldactone] 37.5 mg PO DAILY 05/11/16 [History] Albuterol Sulfate [Proair Hfa] 2 puff IH Q6H PRN 09/23/17 [History] Aripiprazole [Abilify] 7.5 mg PO DAILY 09/23/17 [History] Budesonide/Formoterol 160/4.5 [Symbicort 160/4.5] 2 puff IH BID 09/23/17 [ History] Melatonin/Pyridoxine HCl (B6) [Melatonin 3 mg Tablet] 9 mg PO HS PRN 09/23/17 [ History] Multivitamin [Flintstones] 1 tab PO DAILY 09/23/17 [History] Pregabalin [Lyrica] 150 mg PO BID 09/23/17 [History] SUMAtriptan Succinate [Imitrex] 100 mg PO DAILY PRN 09/23/17 [History] Tamsulosin [Flomax] 0.8 mg PO DAILY 09/23/17 [History] Azithromycin [Zithromax Tri-Reece] 500 mg PO DAILY 1 Days #1 tablet 09/26/17 [Rx] Cefdinir [Omnicef] 300 mg PO BID 4 Days #7 capsule 09/26/17 [Rx] Cholecalciferol (D-3) [Vitamin D] 1,000 unit PO DAILY tablet 09/26/17 [Rx] HYDROcodone/Acet 5/325 mg [[place] 5-325 mg] 1 tab PO Q6HR PRN 5 Days #20 tablet 09/26/17 [Rx] Loperamide [Imodium] 2 mg PO Q4HR PRN capsule 09/26/17 [Rx] Morphine Sulfate SR (12 HR) [MS Contin] 30 mg PO Q8HR 5 Days #30 09/26/17 [Rx] Nicotine Patch [Nicoderm] 21 mg TD DAILY patch.td24 09/26/17 [Rx] metroNIDAZOLE [Flagyl] 500 mg PO TID 6 Days #17 tablet 09/26/17 [Rx] Allergies/Adverse Reactions: 3 Allergy/AdvReac Type Severity Reaction Status Date / Time No Known Allergies Allergy Verified 05/11/16 22:48 - Respiratory Orders Oxygen / L per min (4L NC; wean as tolerated to RA.) Smoking Cessation: Smoking cessation has been advised. For more information, call the [place] Tobacco Quit Line at 9-450-HPGL-NOW. - Mobility Orders Chair, Other (Per physical therapy.) - Rehabiliation Orders Rehab Potential: Fair Rehab Orders: Evaluation for Physical Therapy, Evaluation for Occupational Therapy - Diet Orders Cardiac (Clear Liquid Diet; 2 L QD Fluid Restriction) CERTIFICATION: I certify that the transfer of the above named patient to an Extended Care Facility is necessary for the continuing treatment of the diagnosis listed. The above information is true and accurate reflection of patient's current condition. Confidential - Redisclosure prohibited without a patient's written consent.
[2017-09-26] MEDS ORDERED: metroNIDAZOLE 500 MG TABLET PO SCH (15:00)
[2017-09-26] MEDS ORDERED: Budesonide/Formoterol 160/4.5 MDI IH SCH (22:00)
== END 2017-09-26 15:04 | DRG 190 ==
LOC: 2ANU
PROVIDERS: ADMIT Family Medicine; ATTEND Family Medicine

== ENCOUNTER 2021-09-02 02:37 | Observation (INO) ==
[2021-09-02] MEDS ORDERED: Nitroglycerin 0.4 MG TAB.SUBL SL PRN (02:52)
[2021-09-02] MEDS ORDERED: Morphine Sulfate 2 MG/ML SYRINGE IVP ONE (02:52)
[2021-09-02] MEDS ORDERED: Aspirin 325 MG TABLET PO ONE (02:52)
[2021-09-02 03:14] LABS: Basophils # 0.1 K/mcL (0.0-0.2); Basophils % 0.4 %; Eosinophils # 0.2 K/mcL (0.0-0.6); Eosinophils % 1.8 %; Hematocrit 34.9 % (37.5-50.1); Hemoglobin 11.1 g/dL (12.9-16.9); Immature Granulocytes % 0.5 % (0-4); Lymphocytes # 1.5 K/mcL (0.6-4.6); Lymphocytes % 13.4 %; Mean Corpuscular HGB Conc 31.8 g/dL (31.6-35.5); Mean Corpuscular Hemoglobin 27.8 pg (28.0-33.3); Mean Corpuscular Volume 87.5 fL (83.0-100.0); Mean Platelet Volume 8.5 fL (9.4-12.4); Monocytes % 9.2 %; Neutrophils # 8.4 K/mcL (1.6-8.9); Platelet Count 278 K/mcL (140-400); Red Blood Count 3.99 M/mcL (4.19-5.50); Red Cell Distribution Width 13.2 % (11.5-14.5); Segmented Neutrophils % 74.7 %; White Blood Count 11.2 K/mcL (4.3-11.1)
[2021-09-02 03:24] LABS: INR 1.2; Prothrombin Time 13.2 Seconds (9.4-12.1)
[2021-09-02 03:49] LABS: BUN/Creatinine Ratio 15 (6-26); Blood Urea Nitrogen 22 mg/dL (8-23); Calcium 8.6 mg/dL (8.6-10.3); Carbon Dioxide 25 mEq/L (23-29); Chloride 95 mEq/L (98-107); Glucose 119 mg/dL (70-105); Osmolality,Calculated 274 (280-300); Potassium 3.9 mEq/L (3.5-5.1); Sodium 130 mEq/L (136-145); Troponin I < 0.03 ng/mL (< 0.04); eGFR For African Americans 60 (> 60); eGFR For Non-African Americans 49 (> 60)
[2021-09-02] MEDS ORDERED: Ondansetron ODT 4 MG TAB.RAPDIS SL PRN (04:41)
[2021-09-02] MEDS ORDERED: Melatonin 3 MG TABLET PO PRN (04:41)
[2021-09-02] MEDS ORDERED: Naloxone 0.4 MG/ML INJ IVP PRN (04:41)
[2021-09-02] MEDS ORDERED: *HR* HYDROcodone/Acet 5/325 mg TABLET PO PRN (04:41)
[2021-09-02] MEDS ORDERED: Perflutren Lipid Microsphere 1.3 ML in 0.9 % Sodium Chloride 8.7 ML IVP PRN (04:43)
[2021-09-02] MEDS: 0.9 % Sodium Chloride 1,000 ML IVC SCH ×2 (06:03→18:50)
[2021-09-02] MEDS ORDERED: Regadenoson 0.4 MG/5 ML SYRINGE IVP ONE (06:35)
[2021-09-02] MEDS ORDERED: ALPRAZolam 0.25 MG TABLET PO ONE (11:11)
[2021-09-02 11:46] LABS: Estimated Average Glucose 111 mg/dl; Hemoglobin A1C 5.5 %
[2021-09-02] MEDS: *HR* OxyCODONE Immed Rel 5 MG TABLET PO PRN (16:37)
[2021-09-02] MEDS: *HR* Heparin 5,000 UNIT/ML VIAL SQ SCH (16:37)
[2021-09-02] MEDS: Morphine Sulfate ER (12 HR) 30 MG TABLET.ER PO SCH (20:24)
[2021-09-02 21:15] LABS: Bilirubin,Urine Negative (Negative); Blood,Urine Negative (Negative); Clarity,Urine Clear (Clear); Color,Urine Light-Yellow (Yellow); Glucose,Urine (UA) Normal (Normal); Ketones,Urine Negative (Negative); Leukocyte Esterase,Urine Negative (Negative); Nitrite,Urine Negative (Negative); Protein,Urine Negative (Neg-Trace); Specific Gravity,Urine 1.013 (1.010-1.025); Urobilinogen,Urine Normal (Normal)
[2021-09-03] MEDS: Morphine Sulfate ER (12 HR) 30 MG TABLET.ER PO SCH ×3 (04:09→20:37)
[2021-09-03] MEDS: *HR* Heparin 5,000 UNIT/ML VIAL SQ SCH ×2 (04:09→16:27)
[2021-09-03 07:30] LABS: BUN/Creatinine Ratio 13 (6-26); Blood Urea Nitrogen 17 mg/dL (8-23); Calcium 8.6 mg/dL (8.6-10.3); Carbon Dioxide 28 mEq/L (23-29); Chloride 97 mEq/L (98-107); Chol/HDL Ratio 2.3 (0-4.9); Cholesterol 99 mg/dL (< 200); Glucose 124 mg/dL (70-105); HDL Cholesterol 44 mg/dL (40-59); LDL Cholesterol,Calculated 43 mg/dL (< 100); Osmolality,Calculated 275 (280-300); Phosphorous 2.9 mg/dL (2.7-4.5); Sodium 131 mEq/L (136-145); Triglycerides 61 mg/dL (< 150); eGFR For African Americans > 60 (> 60); eGFR For Non-African Americans 55 (> 60)
[2021-09-03 07:34] LABS: Hematocrit 39.2 % (37.5-50.1); Hemoglobin 12.8 g/dL (12.9-16.9); Mean Corpuscular HGB Conc 32.7 g/dL (31.6-35.5); Mean Corpuscular Volume 88.7 fL (83.0-100.0); Mean Platelet Volume 8.6 fL (9.4-12.4); Platelet Count 294 K/mcL (140-400); Red Blood Count 4.42 M/mcL (4.19-5.50); Red Cell Distribution Width 13.5 % (11.5-14.5); White Blood Count 10.7 K/mcL (4.3-11.1)
[2021-09-03] MEDS: Aspirin 81 MG TAB.CHEW PO SCH (07:48)
[2021-09-03] MEDS: Isosorbide MONOnitrate (24 HR) 30 MG TAB.ER.24H PO SCH (11:09)
[2021-09-03] MEDS: 0.9 % Sodium Chloride 1,000 ML IVC SCH ×2 (13:08→14:58)
[2021-09-03] MEDS: Acetaminophen 325 MG TABLET PO PRN (16:27)
[2021-09-04] MEDS: Acetaminophen 325 MG TABLET PO PRN (00:17)
[2021-09-04] MEDS: Morphine Sulfate ER (12 HR) 30 MG TABLET.ER PO SCH ×2 (05:09→11:14)
[2021-09-04] MEDS: *HR* Heparin 5,000 UNIT/ML VIAL SQ SCH (05:09)
[2021-09-04 06:35] VITALS: BP 115/78; PULSE 86; TEMP 99; O2SAT 94
[2021-09-04] MEDS: Isosorbide MONOnitrate (24 HR) 30 MG TAB.ER.24H PO SCH (08:00)
[2021-09-04] MEDS: Aspirin 81 MG TAB.CHEW PO SCH (08:00)
[2021-09-04] MEDS: *HR* OxyCODONE Immed Rel 5 MG TABLET PO PRN (08:10)
[2021-09-04] MEDS ORDERED: ARIPiprazole 5 MG TABLET PO SCH (09:00)
== END 2021-09-04 12:35 | disposition home or self-care (01) ==
LOC: 3BNU 02:37 → EMEROOARM 02:37 → SUATTDRO 04:52 → 3BNU 06:23
PROVIDERS: ADMIT Internal Medicine; ATTEND Registered Nurse